=== PATIENT | female | born 1950 | race Caucasian/White ===

== ENCOUNTER 2023-12-04 09:38 | Day surgery (SDC) | payer MEDICARE, OTHER ==
[~2023-12-04] VITALS: Ht 160 cm; Wt 83.6 kg
[~2023-12-04 09:38] MED LIST: AMLO2.5T96 PO; CeFAZolin SODIUM 1 GM VIAL ONE; DAPA10TA PO; ERGO500093 PO; FERR325T27 PO; FISH12002 PO; FURO40TA5 PO; GABA-1216 PO; HEPARIN SODIUM,PORCINE 5,000 UNITS/ML VIAL ONE; LABE200T56 PO; LIDOCAINE/PF 1% 30 ML VIAL ONE; MULT-248 PO; OS500 PO; OXYB5TAB20 PO; PANT-31 PO; PATI8.4P PO; ROSU10TA72 PO; SERT-438 PO; SODI650T33 PO; SODIUM CHLORIDE 0.9% 1,000 ML IV ONE; SODIUM CHLORIDE 0.9% 1,000 ML ONE; SODIUM CHLORIDE 0.9% 100 ML ONE
[2023-12-04 10:36] LABS: BASOPHILS % (AUTO) 0.7 % (0.0-2.0); EOSINOPHILS % (AUTO) 2.6 % (1.0-6.0); HEMATOCRIT 31.8 % (36-46); HEMOGLOBIN 10.4 g/dL (12.0-16.0); LYMPHOCYTES # (AUTO) 3.2 K/uL (1.0-4.8); LYMPHOCYTES % (AUTO) 30.4 % (22.0-44.0); MEAN CORPUSCULAR HEMOGLOBIN 27.8 pg (26.0-34.0); MEAN CORPUSCULAR HGB CONC 32.7 G/dL (31.0-37.0); MEAN CORPUSCULAR VOLUME 85 fL (80-100); MONOCYTES # (AUTO) 1.1 K/uL (0.1-1.0); MONOCYTES % (AUTO) 10.5 % (2.0-9.0); NEUTROPHILS % (AUTO) 55.8 % (40.0-70.0); PLATELET COUNT (AUTO) 406 K/uL (150-450); RED BLOOD CELL COUNT(AUTO) 3.74 MIL/uL (4.00-5.20); RED CELL DISTRIBUTION WIDTH 17.7 % (11.5-14.5); WHITE BLOOD COUNT (AUTO) 10.7 K/uL (4.5-11.0)
[2023-12-04 10:55] LABS: INR 1.2 (0.9-1.1); PROTHROMBIN TIME 12.4 SEC (9.4-11.6)
[2023-12-04 10:56] LABS: CALCIUM, TOTAL 8.5 mg/dL (8.8-10.5); CREATININE 3.78 mg/dL (0.60-1.30); POTASSIUM 3.9 mmol/L (3.5-5.1)
[2023-12-04 11:02] LABS: ALBUMIN 2.2 g/dL (3.4-5.0); BILIRUBIN,TOTAL 0.6 mg/dL (0.1-1.0); TOTAL PROTEIN, SERUM 6.6 g/dL (6.4-8.2)
[2023-12-04] MEDS ORDERED: HEPARIN SODIUM,PORCINE 5,000 UNITS/ML VIAL ONE (11:35)
[2023-12-04] MEDS ORDERED: SODIUM CHLORIDE 0.9% 100 ML ONE (11:35)
[2023-12-04] MEDS ORDERED: MIDAZOLAM HCL 2 MG/2 ML VIAL IVP ONE (12:00)
[2023-12-04] MEDS ORDERED: FentaNYL CITRATE PF 100 MCG/2 ML VIAL IVP ONE (12:00)
[2023-12-04] MEDS ORDERED: ACETAMINOPHEN 1000 MG/ISO-OSM 100 ML IV ONE ×2 (13:45→14:11)
[2023-12-04] MEDS ORDERED: ONDANSETRON HCL 4 MG/2 ML VIAL IVP PRN (13:45)
[2023-12-04] MEDS ORDERED: NALOXONE HCL 1 MG/ML 2 ML SYRINGE IVP PRN (13:45)
[2023-12-04] MEDS ORDERED: HYDROCODONE/ACETAMINOPHEN 10-325 MG TABLET PO ONE (14:00)
[2023-12-04] MEDS ORDERED: OXYGEN THERAPY IH SCH (20:00)
== END 2023-12-04 15:25 | disposition home or self-care (01) ==
LOC: SURGERY 09:38
PROVIDERS: ATTEND Surgery
DX: E11.22 Type 2 diabetes mellitus with diabetic chronic kidney disease (principal); N18.6 End stage renal disease; I12.0 Hypertensive chronic kidney disease with stage 5 chronic kidney disease or end stage renal disease; Z79.899 Other long term (current) drug therapy
CPT/HCPCS: 36825; 80053; 85025; 85610; 85730; 36415; 71046; 93005; J0690; J3010; J3490; J2250; J1644; J7030; J7050; J0131; C1768; Z7610